=== PATIENT | female | born 1985 | race Caucasian/White ===

== ENCOUNTER 2020-10-31 06:09 | Emergency (ER) | payer OTHER ==
[~2020-10-31 06:09] MED LIST: ALLEGRA-D 24 H1 EACH PO; FLONASE ALLERG9.9 ML; IBUPROFEN800 MG PO; LEXAPRO 10MG TA10 MG PO; NORCO 5-325 TA1 EACH PO; PERCOCET 5-3251 EACH PO; PRENATAL FORMU1 EACH PO; PRILOSEC20 MG PO
[2020-10-31 06:46] LABS: BASOPHIL 0.2 % (0-2); EOSINOPHIL 0.3 % (0-5); HCT 42.6 % (37.0-47.0); HGB 14.6 g/dl (12.5-16.0); LYMPHOCYTE 5.3 % (15-48); MCH 31.9 pg (25.0-31.0); MCHC 34.3 g/dL (32.0-36.0); MONOCYTE 3.3 % (0-12); NRBC 0; PLT 221 K/uL (150-400); RBC 4.58 M/uL (4.20-5.40); RDW 11.9 % (11.5-14.0); WBC 13.2 K/uL (4.0-10.5)
[2020-10-31 06:47] LABS: NEUTROPHIL 90.4 % (41-80)
[2020-10-31 06:52] LABS: BILIRUBIN NEGATIVE (NEGATIVE); BLOOD 3+ Ery/uL (NEGATIVE); CLARITY CLEAR (CLEAR); COLOR YELLOW (YELLOW); GLUCOSE (U) NORMAL (NORMAL); LEUKOCYTES NEGATIVE Leu/uL (NEGATIVE); NITRITE NEGATIVE (NEGATIVE); PROTEIN NEGATIVE (NEGATIVE); UROBILINOGEN 0.2 mg/dL (0.2-1.0)
[2020-10-31 07:04] LABS: BACTERIA TRACE; URINARY RBC RARE
[2020-10-31 07:05] LABS: BILIRUBIN - TOTAL 0.4 mg/dL (0.2-1.0); CREATININE 0.61 mg/dL (0.51-0.95); GLOBULIN (CALCULATION) 3.1 g/dL; POTASSIUM 3.8 mmol/L (3.5-5.1); TOTAL PROTEIN 7.1 g/dL (6.4-8.2)
[2020-10-31 07:14] LABS: LACTIC ACID 1.3 mmol/L (0.4-1.9)
[2020-10-31 07:48] LABS: CORONAVIRUS 2019 SARS-COV-2 NEGATIVE (NEGATIVE); INFLUENZA A NAA NEGATIVE (NEGATIVE)
[2020-10-31] MEDS ORDERED: ONDANSETRON ODT4 MG SL (08:32)
[2020-10-31] MEDS ORDERED: PHENERGAN25 M1 PO (08:32)
== END 2020-10-31 08:58 | disposition home or self-care (01) ==
LOC: FER 06:09
PROVIDERS: Emergency Medicine Emergency Medical Services
DX: R11.2 Nausea with vomiting, unspecified (principal); Z87.19 Personal history of other diseases of the digestive system; Z98.51 Tubal ligation status; Z98.890 Other specified postprocedural states; Z90.49 Acquired absence of other specified parts of digestive tract; Z20.822 Contact with and (suspected) exposure to COVID-19
CPT/HCPCS: 36415; 74022; 80053; 81001; 83605; 83690; 84145; 85025; J2405; J2550; J7120; U0002